=== PATIENT | male | born 1950 ===

== ENCOUNTER → 2018-08-03 21:32 | Outpatient (REF) | payer OTHER, SELFPAY ==
[2018-08-03 21:35] LABS: Bacteria Urine None Seen; RBC Urine None Seen (0-5/HPF); WBC Urine None Seen (0-5/HPF)
[2018-08-03 22:45] LABS: Add Manual Diff / Slide Review NO; Basophils Percent Auto 0.5 % (0-2); Eosinophils Percent Auto 1.3 % (2-4); Hematocrit 49.4 % (41-53); Hemoglobin 16.6 g/dL (13.5-17.5); Lymphocytes Percent Auto 32.2 % (25-40); Mean Corpuscular HGB Conc 33.5 % (30-36); Mean Corpuscular Hemoglobin 31.4 PG (26-34); Mean Corpuscular Volume 93.7 fL (80-100); Monocytes Percent Auto 8.6 % (3-14); Neutrophils Absolute Auto 2600 /uL (3000-5900); Neutrophils Percent Auto 57.4 % (50-75); Platelet Count 209 X10^3/uL (150-400); Red Blood Cell Count 5.27 X10^6/uL (4.5-5.9); Red Cell Distribution Width 13.7 % (11.6-14.8); White Blood Cell Count 4.5 X10^3/uL (4.5-11.0)
[2018-08-03 23:24] LABS: Appearance Urine UA CLEAR; Bilirubin Urine UA NEGATIVE (NEGATIVE); Color Urine UA YELLOW; Glucose Urine UA NEGATIVE (Normal); Ketones Urine UA NEGATIVE (NEGATIVE); Leukocyte Esterase Urine UA NEGATIVE (NEGATIVE); Nitrite Urine UA NEGATIVE (Negative); Occult Blood Urine UA NEGATIVE (Negative); Protein Urine UA NEGATIVE (Negative); Specific Gravity Urine UA 1.025 (1.000-1.035); Urobilinogen Urine UA 0.2 E.U./dL (0.2); pH Urine UA 5.5 (4.5-8.0)
[2018-08-04 01:47] LABS: Urine Comments Microscopic Normal
[2018-08-04 01:48] LABS: Culture Indicated Urine Cult Not Indicated
[2018-08-04 02:21] LABS: Alanine Aminotransferase 35 IU/L (21-72); Albumin 4.3 g/dL (3.5-5.0); Albumin Globulin Ratio 1.7 (1.0-2.8); Alkaline Phosphatase 58 U/L (38-126); Aspartate Aminotransferase 27 IU/L (17-59); BUN Creatinine Ratio 18.9 (6-22); Bilirubin Total 0.4 mg/dL (0.2-1.3); Blood Urea Nitrogen 17 mg/dL (9-20); Calcium 9.4 mg/dL (8.4-10.2); Carbon Dioxide 30 mmol/L (22-32); Chloride 101 mmol/L (98-107); Cholesterol 252 mg/dL (140-199); Estimated Glomerular Filt Rate > 60.0 mL/min (>60); Globulin 2.5 g/dL (1.7-4.1); Glucose 112 mg/dL (80-110); HDL Cholesterol 62 mg/dL (40-60); HEMOLYSIS < 15 (0-50); LDL Cholesterol Calculated 173 mg/dL (<100); Potassium 4.8 mmol/L (3.4-5.1); Sodium 143 mmol/L (137-145); Total Protein 6.8 g/dL (6.3-8.2); Triglycerides 83 mg/dL (35-150)
[2018-08-05 14:21] LABS: Sex Hormone Binding Globulin 44 nmol/L (22-77)
[2018-08-05 16:12] LABS: Estradiol 25 pg/mL (< 40)
[2018-08-06 14:23] LABS: PSA Total 1.19 ng/mL (< 4.01)
[2018-08-07 15:46] LABS: Testosterone Free 73.9 pg/mL (35.0-155.0); Testosterone Total 443 ng/dL (250-1100)
== END ==
LOC: LAB 21:32
PROVIDERS: Visit Provider Naturopath
DX: Z00.00 Encounter for general adult medical examination without abnormal findings (principal); E29.1 Testicular hypofunction
CPT/HCPCS: 80053; 80061; 81001; 82670; 82728; 84153; 84154; 84270; 84402; 84403; 84443; 85025

== ENCOUNTER → 2019-01-06 22:16 | Outpatient (REF) | payer OTHER, SELFPAY ==
[2019-01-06 22:48] LABS: Add Manual Diff / Slide Review NO; Basophils Absolute Auto 0 /uL (0-100); Basophils Percent Auto 0.4 % (0-2); Eosinophils Absolute Auto 100 /uL (0-450); Eosinophils Percent Auto 1.3 % (2-4); Hematocrit 49.6 % (41-53); Hemoglobin 16.6 g/dL (13.5-17.5); Lymphocytes Absolute Auto 1500 /uL (1100-4500); Lymphocytes Percent Auto 24.5 % (25-40); Mean Corpuscular HGB Conc 33.5 % (30-36); Mean Corpuscular Hemoglobin 31.3 PG (26-34); Mean Corpuscular Volume 93.4 fL (80-100); Monocytes Absolute Auto 700 /uL (0-900); Monocytes Percent Auto 11.4 % (3-14); Neutrophils Absolute Auto 3900 /uL (1500-7000); Neutrophils Percent Auto 62.4 % (50-75); Platelet Count 210 X10^3/uL (150-400); Red Blood Cell Count 5.31 X10^6/uL (4.5-5.9); Red Cell Distribution Width 13.5 % (11.6-14.8); White Blood Cell Count 6.2 X10^3/uL (4.5-11.0)
[2019-01-06 23:35] LABS: Hemoglobin A1C% w Est Avg Glu 5.7 % (4.0-6.0)
[2019-01-06 23:52] LABS: Estradiol, Total 29.7 pg/mL
[2019-01-10 12:07] LABS: Sex Hormone Binding Globulin 67.2
[2019-01-10 14:47] LABS: PSA Total 0.84 ng/mL (< 4.01)
[2019-01-11 12:00] LABS: Testosterone, Total 572.5; Testosterone,Free 7.2
== END ==
LOC: LAB 22:16
PROVIDERS: Visit Provider Naturopath
DX: E29.1 Testicular hypofunction (principal); R73.09 Other abnormal glucose
CPT/HCPCS: 36415; 82670; 83036; 84153; 84154; 84270; 84402; 84403; 85025